=== PATIENT | male | born 1940 | race Caucasian/White ===

== ENCOUNTER 2018-11-04 07:41 | Day surgery (SDC) | payer MEDICARE ==
[~2018-11-04 07:41] MED LIST: CEFAZOLIN SODIUM 2 GM in DEXTROSE 5%-WATER 100 ML IV PRN
[2018-11-04] MEDS ORDERED: BUPIVACAINE HCL 0.5 % INJ/PF 30 ML SDV ONE (08:01)
[2018-11-04] MEDS ORDERED: LIDOCAINE 1% INJ-PF (10 MG/ML) 30 ML SDV ONE (08:01)
[2018-11-04 08:37] LABS: HEMOGLOBIN 14.1 g/dL (13.5-17.0); MEAN CORPUSCULAR HEMOGLOBIN 30.5 pg (27.0-33.4); MEAN CORPUSCULAR HGB CONC 33.6 g/dL (32.0-36.0); MEAN CORPUSCULAR VOLUME 91 fl (80-97); PLATELET COUNT 147 10^3/uL (150-450); RED BLOOD COUNT 4.63 10^6/uL (4.35-5.55); WHITE BLOOD COUNT 4.7 10^3/uL (4.0-10.5)
[2018-11-04] MEDS ORDERED: FENTANYL CITRATE INJ/PF 100 MCG/2 ML AMPUL ONE (08:47)
[2018-11-04] MEDS ORDERED: MIDAZOLAM 2 MG/2 ML INJ ONE (08:48)
[2018-11-04] MEDS ORDERED: PROPOFOL INJ 200 MG/20 ML VIAL IV ONE (08:48)
[2018-11-04 08:52] LABS: ANION GAP 9 (5-19); BLOOD UREA NITROGEN 31 mg/dL (7-20); CALCIUM 9.2 mg/dL (8.4-10.2); CARBON DIOXIDE 31 mmol/L (22-30); CHLORIDE 102 mmol/L (98-107); GLUCOSE 90 mg/dL (75-110); POTASSIUM 4.1 mmol/L (3.6-5.0)
[2018-11-04] MEDS ORDERED: PROMETHAZINE HCL INJ 25 MG/1 ML VIAL IV PRN ×2 (10:30)
[2018-11-04] MEDS ORDERED: DIPHENHYDRAMINE HCL 50 MG/ML VIAL IV PRN (10:30)
[2018-11-04] MEDS ORDERED: MEPERIDINE HCL/PF INJ 25 MG/1 ML DISP.SYRIN IV PRN (10:30)
[2018-11-04] MEDS ORDERED: OXYCODONE-ACETAMINOPHEN 5-325 MG TABLET PO PRN ×3 (10:30→11:42)
[2018-11-04] MEDS ORDERED: FENTANYL CITRATE INJ/PF 100 MCG/2 ML AMPUL IV PRN ×3 (10:30)
--- NOTE | 2018-11-04 11:29 | Operative Report ---
Operative Report DATE OF SURGERY: 11/04/18 PREOPERATIVE DIAGNOSIS: Right knee pain POSTOPERATIVE DIAGNOSIS: 1 partial tear posterior horn medial meniscus. 2 partial tear lateral meniscus. 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 Right knee partial medial and lateral meniscectomy. 2. Chondroplasty medial femoral condyle. 3. Chondroplasty patella SURGEON: CALOS MAURO ANESTHESIA: GA COMPLICATIONS: None ESTIMATED BLOOD LOSS: Minimal PROCEDURE: Indications for procedure: Mr. Parra is a 77-year-old man with persistent right knee pain. He has failed nonoperative treatment including cortisone injection, bracing, and therapy. Description of procedure: Following the induction of a general anesthetic and administration of antibiotics, the patient was positioned supine on the operating room table. All bony prominences were padded. A tourniquet was placed on the operative extremity but not inflated. The right lower extremity was sterilely prepped with ChloraPrep and draped in standard fashion. Medial and lateral portals were localized with a spinal needle and the skin sharply incised. Portals were opened with a blunt clamp. Arthroscope was placed in the lateral portal and into the patellofemoral compartment. Diagnostic arthroscopy of the patellofemoral compartment demonstrated grade IV chondromalacia of the patella and trochlea. Going into the medial compartment grade II chondromalacia was noted of the posterior medial femoral condyle with a flap of cartilage which was unstable. Also a small tear of the posterior horn of the medial meniscus. Diagnostic arthroscopy of the lateral compartment demonstrated a small tear of the lateral meniscus as well. The scope was then placed back into the patellofemoral compartment and a shaver was placed through the medial portal. Debridement of loose cartilage from the patella was performed at this point. There was no loose tissue within the trochlea of needing debridement. The medial compartment was then entered and a shaving chondroplasty of the unstable tissue from the medial femoral condyle was performed. Debridement was performed back to a stable base without an attempt to cause bleeding of the underlying subchondral bone. A biter was brought in and a partial meniscectomy of the posterior horn medial meniscus was performed. Shaver was used to contour the medial meniscus. The lateral meniscal tear was debrided back to a stable base w ith the shaver. Care was taken to ensure that there were no loose bodies in the knee. Arthroscope and shaver were removed. The portals were closed with a subcuticular 3-0 Monocryl suture. Marcaine was injected for postoperative anesthesia. A bulky sterile dressing was then applied. The patient tolerated the procedure well without complication and was brought to recovery room in stable condition.
[2018-11-04] MEDS ORDERED: ONDANSETRON HCL INJ/PF 4 MG/2 ML SDV IV PRN (11:43)
[2018-11-04] MEDS ORDERED: OXYCODONE-ACETAMINOPHEN 5-325 MG TABLET ONE (11:46)
[2018-11-04 13:09] VITALS: BP 125/79
--- NOTE | 2018-11-04 13:25 | EKG REPORT ---
SEVERITY:- ABNORMAL ECG - SINUS RHYTHM EARLY PRECORDIAL TRANSITION , CONSIDE OLD TRUE POST FL : Confirmed by: Vin Serra MD 04-Nov-2018 13:24:59
== END 2018-11-04 13:00 | disposition home or self-care (01) ==
LOC: OROUT 07:41
PROVIDERS: ATTEND Orthopaedic Surgery
DX: M23.221 Derangement of posterior horn of medial meniscus due to old tear or injury, right knee (principal); M23.200 Derangement of unspecified lateral meniscus due to old tear or injury, right knee; M22.41 Chondromalacia patellae, right knee; M25.561 Pain in right knee; I10 Essential (primary) hypertension; E78.00 Pure hypercholesterolemia, unspecified; Z79.899 Other long term (current) drug therapy
CPT/HCPCS: 36415; 85027; 80048; 93005; 93010; 01400; 29880; J2250; J3490; J0690; J3010; A9270; J7060; J2704; 1400